=== PATIENT | male | born 1945 | race Caucasian/White ===

== ENCOUNTER 2018-01-03 22:35 | Emergency (ER) | payer MEDICARE, BC ==
[2018-01-03 22:45] VITALS: BP 152/87; PULSE 71; RESP 18; TEMP 96; O2SAT 97
[2018-01-03] MEDS ORDERED: DOXYCYCLINE 100 MG TAB ONE (23:02)
[2018-01-03] MEDS ORDERED: DOXYCYCLINE 100 MG TAB PO SCH (23:15)
== END 2018-01-03 23:16 | disposition home or self-care (01) | DRG 607 ==
LOC: ED 22:35
DX: S20.162A Insect bite (nonvenomous) of breast, left breast, initial encounter (principal); W57.XXXA Bitten or stung by nonvenomous insect and other nonvenomous arthropods, initial encounter
CPT/HCPCS: 99282; 99283; A9270-GY